=== PATIENT | female | born 1940 | race Two or more races ===

== ENCOUNTER 2017-01-18 09:41 | Observation (INO) | payer MEDICARE, OTHER ==
[~2017-01-18] VITALS: Ht 162.6 cm; Wt 81.8 kg
[~2017-01-18 09:41] MED LIST: AMOX500T PO; ASCO500C PO; BISA-42 PO; CALC-30 PO; CYAN50008 PO; DILT240C2 PO; DOFE125C PO; DOFE500C PO; DOXY100T PO; FENT1PAT13 TP; FURO-68 PO; Hydrocodone/Acetaminophen PO; LEVO125T PO; METO100T2 PO; MULT-208 PO; PANT40TA3 PO; POTA20TA4 PO; SPIR25TA3 PO
[2017-01-18] MEDS ORDERED: 0.9 % SODIUM CHLORIDE 10 ML DISP.SYRIN. IV PRN (10:15)
[2017-01-18 10:24] LABS: FECAL OB PT POSITIVE (NEG)
[2017-01-18] MEDS ORDERED: IV NORMAL SALINE 500ML 500 ML IV ONE (10:30)
[2017-01-18 10:36] LABS: BASO % 0 % (0-3); EOS % 1 % (0-3); HEMATOCRIT 41.8 % (36.0-47.0); HEMOGLOBIN 13.8 g/dL (12.0-15.5); LYMPH # 1.6 x10^3/uL (1.0-4.8); LYMPH % 18 % (24-48); MEAN CORPUSCULAR HEMOGLOBIN 31 pg (25-35); MEAN CORPUSCULAR HGB CONC 33 g/dL (31-37); MEAN CORPUSCULAR VOLUME 94 fL (79-100); MONO # 0.6 x10^3/uL (0.0-1.1); MONO % 7 % (0-9); NEUT # 6.6 x10^3uL (1.8-7.7); NEUT % 74 % (31-73); PLATELET COUNT 239 x10^3/uL (140-400); RED BLOOD COUNT 4.43 x10^6/uL (3.50-5.40); RED CELL DISTRIBUTION WIDTH 14.1 % (11.5-14.5); WHITE BLOOD COUNT 8.9 x10^3/uL (4.0-11.0)
[2017-01-18 10:53] LABS: ALBUMIN 3.4 g/dL (3.4-5.0); ALBUMIN/GLOBULIN RATIO 1.2 (1.0-1.7); CALCIUM 8.9 mg/dL (8.5-10.1); CREATININE 0.7 mg/dL (0.6-1.0); GFR 80.9; POTASSIUM 4.3 mmol/L (3.5-5.1); TOTAL BILIRUBIN 0.8 mg/dL (0.2-1.0); TOTAL PROTEIN 6.3 g/dL (6.4-8.2)
--- NOTE | 2017-01-18 11:08 | PHYS DOC ---
General Chief Complaint: RECTAL BLEED Stated Complaint: RECTAL BLEED Time Seen by MD: 09:46 Source: patient Exam Limitations: no limitations Problems: History of Present Illness Initial Comments 76 years old female patient with history of atrial fibrillation on Coumadin states she had 2 episodes of rectal bleeding since 529 today. Patient states the first episode was dark blood and the second episode had stool mixed with bright red blood. Patient denies nausea and vomiting, abdominal pain, dizziness , shortness of breath, chest pain, ecchymoses and hematuria, history of GI bleeding. Patient states she did not take Coumadin last night because of plan of epidural injection. Allergies: Coded Allergies: iodine (Verified Allergy, Intermediate, 07/26/15) TOPICAL sulfamethoxazole (Unverified Allergy, Intermediate, 07/26/15) trimethoprim (Unverified Allergy, Intermediate, 07/26/15) aspirin (Unverified Allergy, Unknown, 07/26/15) cefuroxime (Verified Allergy, Unknown, 11/07/15) clonazepam (Unverified Allergy, Unknown, 07/26/15) hydrochlorothiazide (Unverified Allergy, Unknown, 07/26/15) iodine (Unverified Allergy, Unknown, 07/26/15) latex (Unverified Allergy, Unknown, 07/26/15) oxycodone (Unverified Allergy, Unknown, 07/26/15) pork derived (porcine) (Unverified Allergy, Unknown, 07/26/15) rabeprazole (Unverified Allergy, Unknown, 07/26/15) Past Medical History Medical History: hypertension, other (atrial fibrillation) Surgical History: other (cardiac valve fidgety, right mastectomy) Social History Smoker: non-smoker Alcohol: none Drugs: none Review of Systems Constitutional: no symptoms reported EENTM: no symptoms reported Respiratory: no symptoms reported Cardiovascular: no symptoms reported Gastrointestinal: see HPI Genitourinary: no symptoms reported Musculoskeletal: no symptoms reported Skin: no symptoms reported Psychiatric/Neurological: no symptoms reported Hematologic/Lymphatic: no symptoms reported Immunological/Allergic: no symptoms reported All Other Systems: Reviewed and Negative Physical Exam General Appearance: WD/WN, mild distress Eyes: bilateral eye EOMI, bilateral eye PERRL, bilateral eye normal inspection Ear, Nose, Throat: hearing grossly normal, normal ENT inspection, normal pharynx Neck: non-tender, full range of motion, supple Respiratory: chest non-tender, lungs clear, normal breath sounds, no respiratory distress Cardiovascular: normal peripheral pulses, regular rate, rhythm, no edema Gastrointestinal: normal bowel sounds, non tender, soft, no organomegaly, no pulsatile mass, other Rectal: heme positive stool (marroon colored stool) Back: normal inspection, no CVA tenderness, no vertebral tenderness Extremities: normal range of motion, non-tender, normal inspection, no pedal edema 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 Patient had unremarkable physical exam except for maroon color stool in the rectum. Patient had negative orthostatic vital sign. Hemoglobin was 13.6 and INR was 3.2. Patient treated with IV fluid and Protonix and Coumadin was hold. She did not have rectal bleeding while she in ER. Dr. Bal accepted the admission at 1105. Departure Departure: Impression: Primary Impression: GI bleeding Additional Impression: Hemorrhage secondary to anti-coagulation Disposition: 09 ADMITTED INPATIENT (at 1107) Admitting Physician: Margarito Bal Condition: IMPROVED JACKSON GALLAGHER MD Jan 18, 2017 11:08
[2017-01-18] MEDS ORDERED: PANTOPRAZOLE IV PUSH 40 MG VIAL. IVP ONE (11:15)
[2017-01-18] MEDS ORDERED: ONDANSETRON PF 4 MG/2 ML VIAL. IV PRN (12:00)
[2017-01-18] MEDS ORDERED: PANTOPRAZOLE SODIUM IV 80 MG in IV NORMAL SALINE 100ML 100 ML IV ONE (12:00)
[2017-01-18 12:09] LABS: HEMATOCRIT 39.4 % (36.0-47.0); RED BLOOD COUNT 4.16 x10^6/uL (3.50-5.40); RED CELL DISTRIBUTION WIDTH 14.3 % (11.5-14.5); WHITE BLOOD COUNT 8.7 x10^3/uL (4.0-11.0)
[2017-01-18 13:29] VITALS: BP 110/74
[2017-01-18 13:31] VITALS: BP 110/74
--- NOTE | 2017-01-18 14:18 | ACF ---
Admission Criteria Forms GASTROINTESTINAL BLEEDING Clinical Indications for Inpatient Care (Place 'X' for any and all applicable criteria): Ongoing inpatient care may be indicated for gastrointestinal bleeding with ANY ONE of the following (4)(20)(21)(22)(23)(24): [X]I. Active bleeding (eg, fresh voluminous blood in emesis or nasogastric aspirate, or per rectum) [ ]II. Hemodynamic instability [ ]III. Anticoagulation therapy or coagulopathy ((eg, advanced liver disease, irreversible anticoagulation) [ ]IV. Ischemic colitis (22) [ ]V. Endoscopy showing arterial bleeding, adherent clot, nonbleeding visible vessel, varices, flat red spots, ulcer size greater than 2 cm, or portal hypertensive gastropathy [ ]. High-risk low platelet count [ ]VII. Anemia requiring inpatient care as indicated by ANY ONE of the following a)[ ] Cognitive impairment b)[ ] Syncope c)[ ] Heart failure d)[ ] Chest pain e)[ ] Dyspnea f)[ ] Other findings suggesting inadequate perfusion (eg, peripheral or myocardial ischemia, end organ dysfunction) [ ]VIII. High-risk low platelet count [ ]IX. Suspected variceal cause of bleeding as indicated by ANY ONE of the following(27)(28): a)[ ] Known varices b)[ ] Hepatomegaly or splenomegaly c)[ ] Ascites d)[ ] Jaundice or scleral icterus e)[ ] History of liver disease (eg, cirrhosis) f)[ ] Physical findings of portal hypertension (eg, caput medusa) g)[ ] Comorbid disorder indicating risk for portal vein thrombosis (eg , abdominal surgery, sepsis, shock, exchange transfusion, prior umbilical vein catheterization) Extended stay may be needed until ALL of the following are present(20)(38)(47): [ ]a) Hemodynamic stability [ ]b) No evidence of active bleeding (eg, stable Hematocrit) [ ]c) Platelet count, prothrombin time, and partial thromboplastin time acceptable for next level of care [ ]d) Surgical or other acute intervention not needed [ ]e) Oral hydration and diet tolerated The original [facility] content created by Dang Levine has been revised. The portions of the content which have been revised are identified through the use of italic text or in bold, and Dang Levine has neither reviewed nor approved the modified material. All other unmodified content is copyright [facility]. Please see references footnoted in the original [facility] edition 2016 Admission Criteria Met?: Yes HEATHER BALBUENA Jan 18, 2017 14:18
[2017-01-18] MEDS ORDERED: WARF2TAB7 PO (14:40)
[2017-01-18] MEDS ORDERED: NITR0.4T SL (14:40)
[2017-01-18] MEDS ORDERED: LACT1CAP29 PO (14:41)
[2017-01-18] MEDS ORDERED: LACT1.5C PO (14:44)
[2017-01-18] MEDS ORDERED: NITROGLYCERIN SUBLINGUAL 0.4 MG BOTTLE OF 25. SL PRN (14:45)
[2017-01-18 14:46] LABS: BILIRUBIN,URINE NEG (NEG); CLARITY,URINE HAZY; COLOR,URINE YELLOW; GLUCOSE,URINE NEG (NEG); NITRITE,URINE NEG (NEG); UROBILINOGEN,URINE 0.2 mg/dL (0.2 mg/dL)
[2017-01-18 14:47] LABS: BACTERIA,URINE 0 /HPF (0-FEW); SQUAMOUS EPITHELIAL CELL,UR FEW /LPF
[2017-01-18] MEDS: HYDROCODONE/APAP 5/325MG TABLET. PO PRN (15:29)
[2017-01-18 16:43] VITALS: BP 94/60
[2017-01-18 19:24] VITALS: BP 90/65
[2017-01-18] MEDS: DOFETILIDE 250 MCG CAPSULE PO SCH (20:31)
[2017-01-18] MEDS: PANTOPRAZOLE SODIUM IV 80 MG in IV NORMAL SALINE 100ML 100 ML IV SCH (20:32)
[2017-01-18] MEDS: METOPROLOL TART IMMED RELEASE 50 MG TABLET PO SCH (20:33)
[2017-01-18] MEDS ORDERED: LACTOBACILLUS ACIDOPH & BULGAR 1 TABLET. PO SCH (21:00)
[2017-01-18 23:06] VITALS: BP 88/57
[2017-01-18 23:35] VITALS: BP 93/55
[2017-01-19 05:05] VITALS: BP 88/59
[2017-01-19] MEDS: PANTOPRAZOLE SODIUM IV 80 MG in IV NORMAL SALINE 100ML 100 ML IV SCH (05:09)
[2017-01-19 07:18] LABS: BASO % 0 % (0-3); EOS % 1 % (0-3); HEMATOCRIT 40.1 % (36.0-47.0); HEMOGLOBIN 13.2 g/dL (12.0-15.5); LYMPH # 1.9 x10^3/uL (1.0-4.8); LYMPH % 31 % (24-48); MEAN CORPUSCULAR HEMOGLOBIN 31 pg (25-35); MEAN CORPUSCULAR HGB CONC 33 g/dL (31-37); MEAN CORPUSCULAR VOLUME 95 fL (79-100); MONO # 0.5 x10^3/uL (0.0-1.1); MONO % 8 % (0-9); NEUT # 3.7 x10^3uL (1.8-7.7); NEUT % 59 % (31-73); PLATELET COUNT 215 x10^3/uL (140-400); RED BLOOD COUNT 4.24 x10^6/uL (3.50-5.40); RED CELL DISTRIBUTION WIDTH 14.3 % (11.5-14.5); WHITE BLOOD COUNT 6.2 x10^3/uL (4.0-11.0)
[2017-01-19 07:26] LABS: ALBUMIN 3.1 g/dL (3.4-5.0); ALBUMIN/GLOBULIN RATIO 1.1 (1.0-1.7); CALCIUM 8.7 mg/dL (8.5-10.1); CREATININE 0.8 mg/dL (0.6-1.0); GFR 69.4; POTASSIUM 4.3 mmol/L (3.5-5.1); TOTAL BILIRUBIN 1.2 mg/dL (0.2-1.0); TOTAL PROTEIN 5.9 g/dL (6.4-8.2)
[2017-01-19] MEDS ORDERED: LEVOTHYROXINE 125 MCG TABLET PO SCH (07:30)
[2017-01-19 08:31] VITALS: BP 104/69
[2017-01-19] MEDS: DOFETILIDE 250 MCG CAPSULE PO SCH (08:43)
[2017-01-19] MEDS ORDERED: PANTOPRAZOLE 40 MG TABLET. PO SCH (09:00)
[2017-01-19] MEDS ORDERED: DILTIAZEM HCL 240 MG CAP.ER.24H PO SCH (09:00)
[2017-01-19] MEDS ORDERED: POTASSIUM CHLORIDE 20 MEQ TABLET.ER. PO SCH (09:00)
[2017-01-19] MEDS: METOPROLOL TART IMMED RELEASE 50 MG TABLET PO SCH (09:00)
[2017-01-19] MEDS ORDERED: SPIRONOLACTONE 25 MG TABLET PO SCH (09:00)
[2017-01-19] MEDS ORDERED: MULTIVITAMIN with MINERAL TABLET. PO SCH (09:00)
[2017-01-19] MEDS ORDERED: FUROSEMIDE 40 MG TABLET PO SCH (09:00)
[2017-01-19] MEDS ORDERED: ASCORBIC ACID 500 MG TABLET PO SCH (09:00)
[2017-01-19 11:07] VITALS: BP 108/70
[2017-01-19] MEDS: HYDROCODONE/APAP 5/325MG TABLET. PO PRN (11:17)
[2017-01-19 12:23] LABS: HEMATOCRIT 41.5 % (36.0-47.0); HEMOGLOBIN 13.6 g/dL (12.0-15.5); RED BLOOD COUNT 4.36 x10^6/uL (3.50-5.40); RED CELL DISTRIBUTION WIDTH 14.2 % (11.5-14.5); WHITE BLOOD COUNT 7.7 x10^3/uL (4.0-11.0)
--- NOTE | 2017-01-27 16:09 | HP ---
ADMIT DATE: 01/18/2017 HISTORY OF PRESENT ILLNESS: The patient is a 76-year-old female, who came in through the Emergency Room with history of chronic atrial fibrillation on chronic Coumadin therapy. The patient was noted rectal bleeding on the day of admission, dark red, bright red blood coming from her rectal area. This patient denies any nausea, vomiting, abdominal pain, shortness of breath, chest pain except for the melena as noted above. The patient does have a history of GI bleed in the past. She was going to get an epidural injection and had stopped her Coumadin last night, but continued to bleed. ALLERGIES: To SULFA, TRIMETHOPRIM, ASPIRIN, ROCEPHIN, CLONAZEPAM, HYDROCHLOROTHIAZIDE, LATEX, OXYCODONE, ____ RABEPRAZOLE, ____ TOPICAL IODINE. PAST MEDICAL HISTORY: Hypertension, chronic atrial fibrillation, cardiac valve ____ sick sinus syndrome with PAF, Medtronic dual chamber PPM in 2008, ASD repair, breast cancer, right mastectomy, venous insufficiency, sleep apnea, GERD, hypothyroidism, marked ectasia of the coronary arteries by catheterization, ejection fraction of 65% in 2014 with moderate MR, moderate TR, moderate LVH. SURGICAL HISTORY: Left TKA, cataract surgery, right TKA, cataract surgery, catheterization, mild coronary artery disease, Medtronic [place] [id number] dual chamber PPM on 09/29/2000, appendectomy, vasectomy as noted, hysterectomy with bilateral salpingo-oophorectomy. FAMILY HISTORY: Father in an airplane crash, mother at 75 with cardiac arrest, one brother alive, one sister with diagnosis of cancer. SOCIAL HISTORY: The patient denies smoking, alcohol or drug use. 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 Allergies as noted above. REVIEW OF SYSTEMS: The patient as noted above. Denies any headaches, visual change, blurred vision, or double vision. Denies any chest pain or shortness of breath. Denies any abdominal pain. Does have melena and hematochezia. MEDICATIONS: Include Tikosyn 250 mcg tablets 2 tablets twice daily, diltiazem 240 daily, Synthroid 112 mcg daily, B12. The patient also had Lidoderm patches, Temovate cream. PHYSICAL EXAMINATION: GENERAL: This is a pleasant white female, in moderate amount of pain. VITAL SIGNS: Blood pressure 90/55, respiratory rate 18, pulse 70, afebrile. HEENT: The patient's head was atraumatic, normocephalic. Eyes: PERRLA without jaundice. Mouth and throat were normal. NECK: Supple without JVD or thyromegaly. LUNGS: Diminished, but clear. CARDIOVASCULAR: ____ rhythm. ABDOMEN: Soft, nontender, protuberant, nontender, but no rebound or guarding, positive bowel sounds, no hepatosplenomegaly. No bruits noted. NEUROLOGIC: The patient was alert and oriented x 3. Stool hemoccult positive. HEMATOLOGIC: Positive. LABORATORY DATA: The patient's hemoglobin 13.8, hematocrit 41. Coags, 3.2 INR. Chemistries normal for sodium and potassium, BUN and creatinine 13 and 0.7. PLAN: The patient will be admitted for further evaluation of rule out GI bleeding and make further evaluation on her as indicated. JONNY WELCH MD DR: TJ/david JOB#: [id number] / [id number]
== END 2017-01-19 14:00 | disposition home or self-care (01) ==
LOC: ER 09:41 → 1 SOUTH 13:05
PROVIDERS: ADMIT Family Medicine; ATTEND Family Medicine
DX: K62.5 Hemorrhage of anus and rectum (principal); I10 Essential (primary) hypertension; I48.2 Chronic atrial fibrillation; I87.2 Venous insufficiency (chronic) (peripheral); G47.30 Sleep apnea, unspecified; K21.9 Gastro-esophageal reflux disease without esophagitis; E03.9 Hypothyroidism, unspecified; I25.10 Atherosclerotic heart disease of native coronary artery without angina pectoris; Z95.0 Presence of cardiac pacemaker; Z85.3 Personal history of malignant neoplasm of breast; Z79.01 Long term (current) use of anticoagulants; Z96.653 Presence of artificial knee joint, bilateral; Z82.41 Family history of sudden cardiac death
CPT/HCPCS: 36415; 80053; 81001; 82274; 83880; 84484; 85027; 85610; 85730; 86850; 86900; 86901; 87086; 96361; 96365; 96366; 96375; 99285; C9113; G0378; J7040; G0379

== ENCOUNTER → 2017-01-26 | Outpatient (CLI) | payer MEDICARE, OTHER ==
[2017-01-19 11:07] VITALS: BP 108/70
[~2017-01-26] MED LIST changes: +LACT1.5C PO; +LACT1CAP29 PO; +NITR0.4T SL; +WARF2TAB7 PO
--- NOTE | 2017-01-26 14:13 | RAD ---
Abdominal ultrasound, 01/26/2017: History: Abdominal pain The gallbladder contains multiple foci of increased echogenicity with associated posterior acoustic shadowing. The appearance is that of cholelithiasis. No gallbladder wall thickening is evident. The common hepatic duct is of normal caliber. There is no evidence of a hepatic mass. The visualized portions of the pancreas and spleen are unremarkable. Several small cysts are noted in the right kidney. The largest of these measures 1.4 cm. There is a 2.6 cm cyst in the left kidney. The kidneys show no evidence of obstruction. The aorta is of normal caliber. The inferior vena cava shows no abnormality. No free fluid is evident in the abdomen. IMPRESSION: 1. Cholelithiasis. 2. Small bilateral renal cysts.
== END | disposition home or self-care (01) ==
LOC: US 08:42
PROVIDERS: ATTEND Family Medicine
DX: R10.9 Unspecified abdominal pain (principal); K80.20 Calculus of gallbladder without cholecystitis without obstruction; N28.1 Cyst of kidney, acquired; Z87.442 Personal history of urinary calculi
CPT/HCPCS: 76700

== ENCOUNTER → 2017-06-08 | Outpatient (CLI) | payer MEDICARE, OTHER ==
[~2017-06-08] MED LIST changes: +FENT-73 TP; -FENT1PAT13 TP
--- NOTE | 2017-06-08 15:13 | RAD ---
Ventilation/perfusion lung scan, 06/08/2017: History: Cough and shortness of breath, elevated d-dimer The ventilation study was performed utilizing 9.5 mCi of xenon-133. Activity in the lungs is mildly heterogeneous. There is mild patchy retention in the lower chest on the washout phase. Perfusion imaging was performed utilizing 5.5 mCi of technetium 99m MAA. A similar pattern of activity is present in the lungs. No segmental or significant unmatched perfusion defects are seen. Similar findings were present on the previous study of 05/11/2008. IMPRESSION: There are no VQ findings to suggest pulmonary emboli.
== END | disposition home or self-care (01) ==
LOC: NM 12:23
PROVIDERS: ATTEND Family Medicine
DX: R68.89 Other general symptoms and signs (principal); R05 Cough; R06.02 Shortness of breath; Z95.0 Presence of cardiac pacemaker; Z79.01 Long term (current) use of anticoagulants
CPT/HCPCS: 78582; 96374; A9540; A9558

== ENCOUNTER → 2017-06-21 | Outpatient (CLI) | payer MEDICARE, OTHER ==
--- NOTE | 2017-06-21 16:29 | RAD ---
CT chest without contrast 06/21/2017 at 1610 hours Indication: Rib pain after fall Comparison: CT chest 11/07/2015 Technique: Multiple axial CT images of the chest were obtained without intravenous contrast. Coronal and sagittal reformats are provided. Findings: Left chest wall cardiac device is identified with leads terminating in the right atrium and right ventricle. Heart size is enlarged. No pericardial effusion. Thoracic aorta is normal in course and caliber with scattered atherosclerotic calcification. There are no enlarged lymph nodes in the axilla, mediastinum or hilar regions. There is a small left pleural effusion with adjacent compressive atelectasis. There is a 3 mm noncalcified pulmonary nodule in the left lower lobe (series 2, image 67). There is a 5 mm noncalcified pulmonary nodule in the right lower lobe (series 2, image 71). There is a 3 mm solid noncalcified pulmonary nodule in the anterior right middle lobe (series 2, image 51). There is no pneumothorax or pulmonary vascular congestion. There is a mildly displaced fracture involving the anterior left second, third, fourth, fifth, sixth ribs. Nondisplaced rib fractures are noted involving the anterolateral left seventh and eighth ribs. Healing right lateral fourth and fifth rib fractures are noted. Visualized portions of the upper abdomen are within normal limits. Impression: 1. There are minimally displaced left side rib fractures involving anterior left second, third, fourth, fifth and sixth ribs. Nondisplaced rib fractures are noted involving the anterolateral left seventh and eighth ribs. 2. Healing right lateral fourth and fifth rib fractures are noted. Recommend correlation with trauma history. 3. No pneumothorax. Small left pleural effusion with adjacent compressive atelectasis. 4. Several 5 mm solid noncalcified pulmonary nodules are noted, as detailed above. Recommend correlation with Fleischner 2017 guidelines for follow-up recommendations. PQRS Compliance Statement: One or more of the following individualized dose reduction techniques were utilized for this examination: 1. Automated exposure control 2. Adjustment of the mA and/or kV according to patient size 3. Use of iterative reconstruction technique
[2017-06-21 17:28] LABS: BASO % 0 % (0-3); EOS # 0.1 x10^3/uL (0.0-0.7); EOS % 1 % (0-3); HEMATOCRIT 38.5 % (36.0-47.0); HEMOGLOBIN 12.6 g/dL (12.0-15.5); LYMPH # 1.5 x10^3/uL (1.0-4.8); LYMPH % 20 % (24-48); MEAN CORPUSCULAR HEMOGLOBIN 29 pg (25-35); MEAN CORPUSCULAR HGB CONC 33 g/dL (31-37); MEAN CORPUSCULAR VOLUME 89 fL (79-100); MONO # 0.5 x10^3/uL (0.0-1.1); MONO % 7 % (0-9); NEUT # 5.1 x10^3uL (1.8-7.7); NEUT % 71 % (31-73); PLATELET COUNT 182 x10^3/uL (140-400); RED BLOOD COUNT 4.32 x10^6/uL (3.50-5.40); RED CELL DISTRIBUTION WIDTH 14.5 % (11.5-14.5); WHITE BLOOD COUNT 7.2 x10^3/uL (4.0-11.0)
[2017-06-21 17:33] LABS: CALCIUM 8.3 mg/dL (8.5-10.1); CREATININE 0.7 mg/dL (0.6-1.0); GFR 80.9
== END | disposition home or self-care (01) ==
LOC: LAB 15:50
PROVIDERS: ATTEND Family Medicine
DX: I50.23 Acute on chronic systolic (congestive) heart failure (principal); S22.42XA Multiple fractures of ribs, left side, initial encounter for closed fracture; I51.7 Cardiomegaly; I70.0 Atherosclerosis of aorta; R91.8 Other nonspecific abnormal finding of lung field; J90 Pleural effusion, not elsewhere classified; J98.11 Atelectasis; X58.XXXA Exposure to other specified factors, initial encounter; Y93.89 Activity, other specified; Y92.89 Other specified places as the place of occurrence of the external cause; Y99.8 Other external cause status
CPT/HCPCS: 36415; 71250; 80048; 82550; 83605; 83880; 84484; 85025

== ENCOUNTER 2019-11-11 10:45 | Inpatient (IN) | payer MEDICARE, OTHER ==
[~2019-11-11] VITALS: Ht 160 cm; Wt 81.6 kg
[~2019-11-11 10:45] MED LIST changes: -METO100T2 PO; +METO100T7 PO; -NITR0.4T SL; +NITR0.4T24 SL; -SPIR25TA3 PO; +SPIR25TA5 PO; -WARF2TAB7 PO; +WARF2TAB96 PO
[2019-11-11 12:20] VITALS: BP 104/69
[2019-11-11] MEDS ORDERED: APIX5TAB3 PO (12:49)
[2019-11-11] MEDS ORDERED: METO100T5 PO (12:49)
[2019-11-11] MEDS ORDERED: ESOM40CA PO (12:49)
[2019-11-11] MEDS ORDERED: ALBU2.5V14 NEB (12:49)
[2019-11-11] MEDS ORDERED: METO50TA4 PO (12:49)
[2019-11-11] MEDS ORDERED: CHOL200059 PO (12:49)
[2019-11-11] MEDS ORDERED: CALC500T54 PO (12:49)
[2019-11-11] MEDS ORDERED: ATOR10TA60 PO (12:49)
[2019-11-11] MEDS ORDERED: ASPI-612 PO (12:49)
[2019-11-11 13:01] LABS: BASO % 0 % (0-3); EOS % 0 % (0-3); HEMATOCRIT 39.3 % (36.0-47.0); HEMOGLOBIN 12.7 g/dL (12.0-15.5); LYMPH # 1.1 x10^3/uL (1.0-4.8); LYMPH % 10 % (24-48); MEAN CORPUSCULAR HEMOGLOBIN 29 pg (25-35); MEAN CORPUSCULAR HGB CONC 32 g/dL (31-37); MEAN CORPUSCULAR VOLUME 90 fL (79-100); MONO # 0.7 x10^3/uL (0.0-1.1); MONO % 6 % (0-9); NEUT # 8.9 x10^3uL (1.8-7.7); NEUT % 83 % (31-73); PLATELET COUNT 241 x10^3/uL (140-400); RED BLOOD COUNT 4.36 x10^6/uL (3.50-5.40); RED CELL DISTRIBUTION WIDTH 14.7 % (11.5-14.5); WHITE BLOOD COUNT 10.7 x10^3/uL (4.0-11.0)
[2019-11-11 13:23] LABS: ALBUMIN 3.4 g/dL (3.4-5.0); ALBUMIN/GLOBULIN RATIO 1.1 (1.0-1.7); CALCIUM 8.6 mg/dL (8.5-10.1); CREATININE 0.7 mg/dL (0.6-1.0); GFR 80.3; POTASSIUM 4.3 mmol/L (3.5-5.1); TOTAL BILIRUBIN 1.3 mg/dL (0.2-1.0); TOTAL PROTEIN 6.6 g/dL (6.4-8.2)
[2019-11-11] MEDS ORDERED: guaiFENesin DM 200MG/20MG 10 ML SYRUP PO PRN ×2 (13:45→18:00)
[2019-11-11] MEDS ORDERED: NITROGLYCERIN SUBLINGUAL 0.4 MG BOTTLE OF 25. SL PRN (13:45)
[2019-11-11] MEDS: traMADol 50 MG TABLET PO PRN ×2 (13:59→21:06)
[2019-11-11] MEDS: BENZONATATE 100 MG CAPSULE. PO SCH ×2 (13:59→21:10)
[2019-11-11] MEDS ORDERED: traMADol 50 MG TABLET PO PRN (14:00)
[2019-11-11 14:33] LABS: INFLUENZA A PATIENT NEGATIVE (NEGATIVE); INFLUENZA B PATIENT NEGATIVE (NEGATIVE)
[2019-11-11 14:46] VITALS: BP 108/72
[2019-11-11] MEDS ORDERED: FUROSEMIDE 40 MG TABLET PO SCH (16:00)
[2019-11-11] MEDS ORDERED: ALBUTEROL SULFATE 2.5 MG/3 ML NEBU. NEB SCH (16:00)
[2019-11-11] MEDS ORDERED: FUROSEMIDE 20 MG/2 ML VIAL IVP SCH (16:00)
[2019-11-11] MEDS ORDERED: IPRATROPIUM BROMIDE 0.5 MG/2.5 ML NEBU. NEB SCH (16:00)
[2019-11-11] MEDS: CALCIUM CARBONATE 500 MG TABLET PO SCH (16:18)
[2019-11-11] MEDS ORDERED: DOXYCYCLINE HYCLATE 100 MG TABLET PO SCH (18:00)
--- NOTE | 2019-11-11 18:15 | EKG ---
[address] [address] Test Date: 2019-11-11 Test Time: 15:45:37 Pat Name: SANDEEP ANGEL Department: Room: 109 A Gender: F Inspector Circuitry Negative: SARAH : 1940 Requested By: JONNY WELCH Order Number: [id number] Reading MD: Measurements Intervals Proctor Rate: 82 P: VT: QRS: 171 QRSD: 144 T: -8 QT: 420 QTc: 494 Interpretive Statements IRREGULAR RHYTHM, NO P-WAVE FOUND ABNORMAL RIGHT AXIS DEVIATION NON SPECIFIC INTRAVENTRICULAR BLOCK CONSIDER RIGHT VENTRICULAR HYPERTROPHY QRS(T) CONTOUR ABNORMALITY CONSIDER ANTEROSEPTAL MYOCARDIAL DAMAGE ABNORMAL ECG RI6.02 No previous ECG available for comparison
[2019-11-11 19:19] VITALS: BP 93/59
[2019-11-11] MEDS: IPRATRPIUM/ALBUTEROL 0.5/2.5MG 3 ML NEBU. NEB SCH (20:00)
--- NOTE | 2019-11-11 20:54 | RAD ---
EXAM: CHEST ONE VIEW. HISTORY: Cough and shortness of breath. COMPARISON: 06/21/2017. FINDINGS: A frontal view of the chest is obtained. A left-sided pacemaker/defibrillator has its leads in the right atrium, right ventricle and a left cardiac vein. A surgical clip projects over the right upper lobe. The central vasculature are enlarged. Linear opacities in the bases may indicate atelectasis or mild pulmonary edema. There is no pneumothorax or clear pleural effusion. The heart is moderately enlarged. There are atherosclerotic calcifications of the aorta. Right rotator cuff arthropathy and moderate glenohumeral osteoarthritis are noted. IMPRESSION: 1. Findings consistent with mild volume overload. Moderate cardiomegaly. Correlate for pulmonary arterial hypertension. Electronically signed by: Nicci Musa MD (11/11/2019 8:50 PM) [facility]
--- NOTE | 2019-11-11 20:56 | RAD ---
EXAM: VENTILATION/PERFUSION SCINTIGRAPHY. HISTORY: Positive d-dimer. Shortness of breath, cough. Assess for pulmonary embolism. TECHNIQUE: 15 mCi Xe-133 was inhaled and ventilation images were obtained. 5.1 mCi Tc-99m MAA was injected intravenously and perfusion images were obtained in multiple projections. COMPARISON: Today's plain radiograph. FINDINGS: Decreased ventilation in the left base is likely secondary to cardiomegaly. There is mild radiotracer retention focally in the right base. Decreased perfusion signal in the left base is again likely secondary to compression and decreased ventilation in the setting of cardiomegaly. There are no segmental defects. A pacemaker generator is noted. IMPRESSION: 1. Low probability for pulmonary embolism. 2. Focal air trapping in the right base. Electronically signed by: Nicci Musa MD (11/11/2019 8:53 PM) [facility]
[2019-11-11] MEDS: METOPROLOL SUCC 24HR ER 50 MG TAB.ER.24H. PO SCH (21:00)
[2019-11-11] MEDS ORDERED: NON FORMULARY ITEM (Albuterol Sulfate (Albuterol Sulfate Conc Neb Soln) 2.5 MG) NEB SCH (21:00)
[2019-11-11] MEDS: LACTOBACILLUS RHAMNOSUS GG 1 CAPSULE. PO SCH (21:04)
[2019-11-11] MEDS: APIXABAN 5 MG TABLET. PO SCH (21:04)
[2019-11-11] MEDS: methylPREDNISolone SOD SUCC PF 40 MG/ML VIAL. IV SCH (21:04)
[2019-11-11] MEDS: diphenhydrAMINE HCL 25 MG CAPSULE PO PRN (21:06)
[2019-11-11] MEDS: DOXYCYCLINE HYCLATE 100 MG TABLET PO SCH (21:07)
[2019-11-11] MEDS: ATORVASTATIN CALCIUM 10 MG TABLET. PO SCH (21:07)
[2019-11-11] MEDS: BISACODYL TAB 5 MG TABLET.DR. PO SCH (21:07)
[2019-11-11 22:36] VITALS: BP 100/63
[2019-11-12] MEDS: IPRATRPIUM/ALBUTEROL 0.5/2.5MG 3 ML NEBU. NEB SCH ×2 (04:54→21:18)
[2019-11-12 05:16] VITALS: BP 102/67
[2019-11-12] MEDS: LEVOTHYROXINE 125 MCG TABLET PO SCH (05:47)
--- NOTE | 2019-11-12 06:30 | RAD ---
CT chest without contrast PQRS statement: CT scans at this facility use dose reduction including either automated exposure control, iterative reconstructions, and /or weight based radiation dosing via mA and kV modification when appropriate to reduce radiation dose to as low as reasonably achievable. HISTORY: Shortness of breath and coughing. COMPARISON: CT chest June 21, 2017. FINDINGS: Gallstones. Sliding hiatal hernia gastroesophageal junction. Cardiomegaly. Cardiac pacemaker. 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 Enlargement of the pulmonary arteries main pulmonary artery diameter is 4.2 cm may indicate pulmonary hypertension. Probable mediastinal adenopathy with a subcarinal enlarged 2 cm lymph node on image 27 previously was smaller measuring 1.5 cm. Mild enlarged right paratracheal mediastinal 1.5 cm lymph node is similar. Right mastectomy. Tiny dependent subcentimeter pleural effusions. Mild subpleural reticulation and mild groundglass opacities at the right middle lobe and bilateral lower lobes may represent very mild edema. No consolidated pulmonary opacities. No pulmonary interstitial edema evident. Trachea and bronchi are unremarkable. IMPRESSION: 1. Cardiomegaly is stable. 2. Tiny subcentimeter dependent pleural effusions. There may be very mild edema at the lung bases. 3. Mediastinal adenopathy. Electronically signed by: Kaushik Foster MD (11/12/2019 6:27 AM) [facility]
[2019-11-12] MEDS: BENZONATATE 100 MG CAPSULE. PO SCH ×3 (07:52→20:49)
[2019-11-12] MEDS: CALCIUM CARBONATE 500 MG TABLET PO SCH ×2 (07:53→18:02)
[2019-11-12] MEDS: APIXABAN 5 MG TABLET. PO SCH ×2 (07:53→20:49)
[2019-11-12] MEDS: PANTOPRAZOLE 40 MG TABLET. PO SCH (07:53)
[2019-11-12] MEDS: POTASSIUM CHLORIDE 20 MEQ TABLET.ER. PO SCH (07:53)
[2019-11-12] MEDS: CHOLECALCIFEROL (VITAMIN D3) 1,000 UNIT TABLET PO SCH (07:54)
[2019-11-12] MEDS: MULTIVITAMIN with MINERAL TABLET. PO SCH (07:54)
[2019-11-12] MEDS: LACTOBACILLUS RHAMNOSUS GG 1 CAPSULE. PO SCH ×2 (07:54→20:49)
[2019-11-12] MEDS: DOXYCYCLINE HYCLATE 100 MG TABLET PO SCH ×2 (07:54→20:49)
[2019-11-12] MEDS: ASCORBIC ACID 500 MG TABLET PO SCH (07:54)
[2019-11-12] MEDS ORDERED: DILT120C99 PO (07:57)
[2019-11-12] MEDS: methylPREDNISolone SOD SUCC PF 40 MG/ML VIAL. IV SCH ×2 (08:04→20:50)
[2019-11-12 08:30] LABS: CALCIUM 8.9 mg/dL (8.5-10.1); CREATININE 0.6 mg/dL (0.6-1.0); GFR 95.9
[2019-11-12] MEDS ORDERED: FUROSEMIDE 20 MG/2 ML VIAL IVP SCH (09:00)
[2019-11-12] MEDS ORDERED: FUROSEMIDE 40 MG/4 ML VIAL IVP SCH (09:00)
[2019-11-12] MEDS ORDERED: ASPIRIN ENTERIC COATED 81 MG TABLET.DR. PO SCH (09:00)
[2019-11-12] MEDS ORDERED: MAG HYDROX/AL HYDROX/SIMETH 30 ML ORAL.SUSP PO PRN (09:15)
[2019-11-12] MEDS ORDERED: FUROSEMIDE 20 MG/2 ML VIAL IVP ONE (09:45)
[2019-11-12 11:03] VITALS: BP 109/70
--- NOTE | 2019-11-12 11:31 | RAD ---
CHEST PA LATERAL History: Shortness of air Comparison: Chest CT November 12, 2019 and November 11, 2019 radiograph Findings: 2 views of the chest are submitted. There is no new dependent pleural fluid identified by radiograph. There is no pneumothorax or new lobar consolidation. Pericardial cardiac silhouette is again enlarged. There is again tortuous thoracic aorta, some atherosclerotic calcification near aortic arch. There is again left electronic cardiac device. There is again prominence of the central pulmonary vessels. Impression: 1. Radiographic findings are similar, no new lobar infiltrate. Electronically signed by: Issa Mosquera MD (11/12/2019 11:28 AM) [facility]
[2019-11-12] MEDS: METOPROLOL SUCC 24HR ER 50 MG TAB.ER.24H. PO SCH ×2 (12:10→20:53)
[2019-11-12] MEDS: AZTREONAM 1 GM in IV NORMAL SALINE 50ML 50 ML IV SCH ×3 (12:11→23:58)
[2019-11-12] MEDS: FUROSEMIDE 40 MG/4 ML VIAL IVP SCH (13:59)
[2019-11-12 15:11] VITALS: BP 105/66
[2019-11-12] MEDS: traMADol 50 MG TABLET PO PRN (18:02)
[2019-11-12 19:31] VITALS: BP 108/71
--- NOTE | 2019-11-12 19:57 | HP ---
ADMIT DATE: 11/11/2019 HISTORY OF PRESENT ILLNESS: This is an 79-year-old female who came in. She has been having problems with coughing spasm as well as difficulty breathing because of the spasms have been so severe that she is not able to breathe. She has severe coughing spasms that have been going on for a few weeks. She has been attempted to be treated as an outpatient, but she cannot catch her breath because of the breathing difficulties and severe coughing spasms. She was admitted for further evaluation of the bronchospasms, which is a form of asthma. PAST MEDICAL HISTORY: Cataract surgery, tonsillectomy. She has had a history of stroke in February 2017, atrial fibrillation with atrial septal defect repaired, history of congestive heart failure, pacemaker placement, internal defibrillator, chronic anticoagulation therapy, hypotension, respiratory disorders, COPD, asthma, pneumonia, sleep apnea, diverticulitis, hiatal hernia, heartburn, GERD, breast cancer, right mastectomy, right lymph nodes removed, tubal ligation, hysterectomy, partial x 3, back and groin chronic lumbar and arthritic problems, osteoporosis, joint replacement bilateral knees, back pain, hypothyroidism, parathyroid disease, thyroidectomy, parathyroidectomy, caffeine use, blood disorders of anemia and history of cancer, clotting problems, blood transfusions. IMMUNIZATIONS: Influenza, pneumococcal up to date. ALLERGIES: She has multiple allergies to IODINE, SULFUR, ASPIRIN, CEFTIN, KLONOPIN, HYDROCHLOROTHIAZIDE, IODINE, LATEX, PERCOCET, PORCINE DERIVED OR PORK DERIVED MATERIALS AND ACIPHEX. HOME MEDICATIONS: Include albuterol sulfate, Eliquis 5 mg, Lipitor 10, Nitrostat, metoprolol XL 150 mg at bedtime, diltiazem 120 mg b.i.d., aspirin, calcium carbonate, potassium chloride, furosemide, lactobacillus, Dulcolax suppository. She uses Nexium capsule, Synthroid 125 mg, vitamin C, vitamin D and multivitamins. FAMILY HISTORY: Noncontributory or unknown. SOCIAL HISTORY: She denies smoking, alcohol or drug use. Lives at home. REVIEW OF SYSTEMS: Outside of severe coughing, she has had fever and chills, reported night sweats and has noted difficulty breathing as well as some lightheadedness and elements of hypotension. The patient denies any problem with her bowels or bladder, some mild nausea and otherwise unremarkable. Neurologically alert and oriented. The patient otherwise seems to be holding her own there. PHYSICAL EXAMINATION: GENERAL: This is a very pleasant white female, well-developed, well nourished. VITAL SIGNS: Blood pressure anywhere from 93/59 up to 105/66, respiratory rate up to 24, temperature 99.1, respiratory rate 24, oxygen saturation on oxygen of 95%. The patient's weight was 80 kilos. HEENT: The patient's head was atraumatic, normocephalic. Eyes: PERRLA without jaundice. The mouth and throat were normal. NECK: Supple, without JVD, carotid bruits. No thyromegaly. LUNGS: Diminished throughout. Some crackles noted in the right lower lung base. CARDIOVASCULAR: Irregular, irregular rhythm. ABDOMEN: The patient's abdomen was protuberant, soft, nontender, no rebounding, no guarding. Positive bowel sounds. EXTREMITIES: No clubbing, cyanosis, nor edema. NEUROLOGIC: The patient is alert and oriented x 3. LABORATORY DATA: The patient's labs show white count of 10. She does have decreased lymphocytes consistent with possible infection. The patient's sodium and potassium 130 and 9.4, BUN and creatinine of 30 and 0.6. Blood sugar 154. Lactic acid good. Calcium was also normal. Her D-dimer was elevated at 0.74. The patient otherwise is resting fairly comfortably and making good progress there. She had a CT of her chest, which demonstrated a cardiomegaly and subsegmental dependent pleural effusions with edema. She did have an elevated BNP of 1364, total bili slightly elevated at 1.3. Neurologically, alert and oriented. Speech is fluent, spontaneous and appropriate. The patient otherwise will be continued to be monitored carefully, make further evaluation on her as indicated. IMPRESSION: Acute on top of chronic diastolic heart failure as well as that of bronchospasm and multiple other history. The patient will be diuresed gently and make further evaluation on her breathing situation. JONNY WELCH MD DR: TJ/david JOB#: [id number] / [id number]
[2019-11-12] MEDS: BISACODYL TAB 5 MG TABLET.DR. PO SCH (20:49)
[2019-11-12] MEDS: ATORVASTATIN CALCIUM 10 MG TABLET. PO SCH (20:49)
[2019-11-12] MEDS: diphenhydrAMINE HCL 25 MG CAPSULE PO PRN (21:02)
[2019-11-12 22:56] VITALS: BP 98/64
[2019-11-13] MEDS: ZOLPIDEM 5 MG TABLET. PO PRN (00:18)
[2019-11-13] MEDS: AZTREONAM 1 GM in IV NORMAL SALINE 50ML 50 ML IV SCH ×4 (05:16→23:59)
[2019-11-13] MEDS: LEVOTHYROXINE 125 MCG TABLET PO SCH (05:17)
[2019-11-13 05:19] VITALS: BP 100/71
[2019-11-13 06:14] LABS: BASO % 0 % (0-3); EOS % 0 % (0-3); HEMATOCRIT 37.6 % (36.0-47.0); HEMOGLOBIN 12.3 g/dL (12.0-15.5); LYMPH # 0.7 x10^3/uL (1.0-4.8); LYMPH % 7 % (24-48); MEAN CORPUSCULAR HEMOGLOBIN 29 pg (25-35); MEAN CORPUSCULAR HGB CONC 33 g/dL (31-37); MEAN CORPUSCULAR VOLUME 89 fL (79-100); MONO # 0.2 x10^3/uL (0.0-1.1); MONO % 2 % (0-9); NEUT # 10.3 x10^3uL (1.8-7.7); NEUT % 92 % (31-73); PLATELET COUNT 251 x10^3/uL (140-400); RED BLOOD COUNT 4.21 x10^6/uL (3.50-5.40); RED CELL DISTRIBUTION WIDTH 13.9 % (11.5-14.5); WHITE BLOOD COUNT 11.3 x10^3/uL (4.0-11.0)
[2019-11-13 06:35] LABS: CALCIUM 8.7 mg/dL (8.5-10.1); CREATININE 0.7 mg/dL (0.6-1.0); GFR 80.3; POTASSIUM 3.8 mmol/L (3.5-5.1)
[2019-11-13] MEDS: BENZONATATE 100 MG CAPSULE. PO SCH ×3 (08:47→19:53)
[2019-11-13] MEDS: LACTOBACILLUS RHAMNOSUS GG 1 CAPSULE. PO SCH ×2 (08:47→19:54)
[2019-11-13] MEDS: APIXABAN 5 MG TABLET. PO SCH ×2 (08:48→19:54)
[2019-11-13] MEDS: CHOLECALCIFEROL (VITAMIN D3) 1,000 UNIT TABLET PO SCH (08:48)
[2019-11-13] MEDS: PANTOPRAZOLE 40 MG TABLET. PO SCH (08:48)
[2019-11-13] MEDS: DOXYCYCLINE HYCLATE 100 MG TABLET PO SCH (08:48)
[2019-11-13] MEDS: CALCIUM CARBONATE 500 MG TABLET PO SCH ×2 (08:48→17:12)
[2019-11-13] MEDS: MULTIVITAMIN with MINERAL TABLET. PO SCH (08:48)
[2019-11-13] MEDS: METOPROLOL SUCC 24HR ER 50 MG TAB.ER.24H. PO SCH ×2 (08:48→21:00)
[2019-11-13] MEDS: ASCORBIC ACID 500 MG TABLET PO SCH (08:48)
[2019-11-13] MEDS: POTASSIUM CHLORIDE 20 MEQ TABLET.ER. PO SCH (08:53)
[2019-11-13] MEDS: methylPREDNISolone SOD SUCC PF 40 MG/ML VIAL. IV SCH ×2 (08:53→19:53)
[2019-11-13] MEDS: FUROSEMIDE 40 MG/4 ML VIAL IVP SCH ×2 (08:53→14:43)
[2019-11-13] MEDS: IPRATRPIUM/ALBUTEROL 0.5/2.5MG 3 ML NEBU. NEB SCH ×3 (09:00→20:28)
[2019-11-13] MEDS ORDERED: CLARITHROMYCIN 250 MG TABLET PO SCH (09:00)
[2019-11-13] MEDS ORDERED: BISACODYL TAB 5 MG TABLET.DR. PO ONE (09:30)
[2019-11-13] MEDS ORDERED: AZITHROMYCIN 250 MG TABLET. PO ONE (09:45)
--- NOTE | 2019-11-13 09:50 | RAD ---
EXAM: Abdomen sonogram. HISTORY: Pain. TECHNIQUE: Sonographic imaging of the abdomen was performed. COMPARISON: 01/26/2017. FINDINGS: The liver is normal in size. No focal hepatic lesion is seen. The common bile duct is normal in caliber. There is cholelithiasis. There is no evidence of cholecystitis. The kidneys are normal in size. There are bilateral renal cysts, measuring 1.3 cm and 1.5 cm on the right and 3.2 cm on the left. No solid renal lesion is seen. The pancreas, spleen, aorta and inferior vena cava are unremarkable. IMPRESSION: 1. Cholelithiasis. 2. Bilateral renal cysts. These are simple in appearance. Electronically signed by: Ramona Camara MD (11/13/2019 9:47 AM) [facility]
[2019-11-13] MEDS: FAMOTIDINE 20 MG TABLET PO SCH ×2 (10:14→19:53)
[2019-11-13] MEDS: FLUTICASONE 50MCG/NASAL SPRAY 16GM BOTTLE. NS SCH (10:15)
[2019-11-13 11:38] VITALS: BP 122/78
[2019-11-13 15:25] VITALS: BP 97/61
[2019-11-13 19:44] VITALS: BP 102/64
[2019-11-13] MEDS: BISACODYL TAB 5 MG TABLET.DR. PO SCH (19:54)
[2019-11-13] MEDS: traMADol 50 MG TABLET PO PRN (19:54)
[2019-11-13] MEDS: ATORVASTATIN CALCIUM 10 MG TABLET. PO SCH (19:55)
[2019-11-13] MEDS: diphenhydrAMINE HCL 25 MG CAPSULE PO PRN (19:55)
--- NOTE | 2019-11-14 01:25 | PN ---
DATE: SUBJECTIVE: The patient in with acute exacerbation of COPD with respiratory distress. The patient is feeling a little bit better today. OBJECTIVE: VITAL SIGNS: Blood pressure is on the low side, now 97/61, respiratory rate 20, pulse 93, afebrile, oxygen saturation has come up gradually. GENERAL: The patient is alert and oriented. LUNGS: Diminished, still receiving antibiotics as well as aggressive pulmonary toilet. The patient's lungs are diminished throughout. CARDIOVASCULAR: Irregularly irregular rhythm. ABDOMEN: Soft, nontender. EXTREMITIES: No clubbing, cyanosis, nor edema. LABORATORY DATA: Show white count of 11, otherwise unremarkable. Chemistries are basically unremarkable except for an elevated blood sugar. She continues to make good progress overall. She did have an ultrasound, did show cholelithiasis and bilateral renal cysts, otherwise unremarkable there. We will continue to monitor the patient accordingly and taper down on Solu-Medrol and hopefully ready for discharge. IMPRESSION: Acute respiratory distress, acute exacerbation of chronic obstructive pulmonary disease. PLAN: As above. JONNY WELCH MD DR: TJ/david JOB#: [id number] / [id number]
[2019-11-14] MEDS: IPRATRPIUM/ALBUTEROL 0.5/2.5MG 3 ML NEBU. NEB SCH ×3 (05:03→20:45)
[2019-11-14 05:50] VITALS: BP 107/67
[2019-11-14] MEDS: AZTREONAM 1 GM in IV NORMAL SALINE 50ML 50 ML IV SCH ×4 (06:02→23:34)
[2019-11-14] MEDS: LEVOTHYROXINE 125 MCG TABLET PO SCH (06:02)
[2019-11-14] MEDS: methylPREDNISolone SOD SUCC PF 40 MG/ML VIAL. IV SCH ×2 (08:27→20:44)
[2019-11-14] MEDS: FUROSEMIDE 40 MG/4 ML VIAL IVP SCH ×2 (08:27→13:03)
[2019-11-14] MEDS: METOPROLOL SUCC 24HR ER 50 MG TAB.ER.24H. PO SCH ×2 (08:28→20:45)
[2019-11-14] MEDS: CHOLECALCIFEROL (VITAMIN D3) 1,000 UNIT TABLET PO SCH (08:30)
[2019-11-14] MEDS: FAMOTIDINE 20 MG TABLET PO SCH ×2 (08:30→20:44)
[2019-11-14] MEDS: AZITHROMYCIN 250 MG TABLET. PO SCH (08:31)
[2019-11-14] MEDS: ASCORBIC ACID 500 MG TABLET PO SCH (08:31)
[2019-11-14] MEDS: BENZONATATE 100 MG CAPSULE. PO SCH ×3 (08:32→20:44)
[2019-11-14] MEDS: LACTOBACILLUS RHAMNOSUS GG 1 CAPSULE. PO SCH ×2 (08:32→20:44)
[2019-11-14] MEDS: POTASSIUM CHLORIDE 20 MEQ TABLET.ER. PO SCH (08:32)
[2019-11-14] MEDS: MULTIVITAMIN with MINERAL TABLET. PO SCH (08:32)
[2019-11-14] MEDS: CALCIUM CARBONATE 500 MG TABLET PO SCH ×2 (08:32→16:23)
[2019-11-14] MEDS: PANTOPRAZOLE 40 MG TABLET. PO SCH (08:32)
[2019-11-14] MEDS: APIXABAN 5 MG TABLET. PO SCH ×2 (08:33→20:45)
[2019-11-14] MEDS: FLUTICASONE 50MCG/NASAL SPRAY 16GM BOTTLE. NS SCH (08:33)
[2019-11-14] MEDS ORDERED: ASPIRIN ENTERIC COATED 81 MG TABLET.DR. PO SCH (09:00)
[2019-11-14 11:07] VITALS: BP 96/60
--- NOTE | 2019-11-14 12:18 | CARD ---
MR#: [id number] Date of Study: 11/14/2019 Ordering Physician: JONNY WELCH, Referring Physician: JONNY WELCH, Tech: Jennie Carmichael RDCS APPROVED REPORT EXAM: Two-dimensional and M-mode echocardiogram with Doppler and color Doppler. Other Information Quality : Good INDICATION Congestive Heart Failure Surgery/Intervention ICD/Pacemaker: 2D DIMENSIONS RVDd4.1 (2.9-3.5cm)Left Atrium(2D)5.1 (1.6-4.0cm) IVSd0.9 (0.7-1.1cm)Aortic Root(2D)2.8 (2.0-3.7cm) LVDd5.2 (3.9-5.9cm)LVOT Diameter2.0 (1.8-2.4cm) PWd1.1 (0.7-1.1cm)LVDs4.0 (2.5-4.0cm) FS (%) 27.0 %LVEF(%)55.0 (>50%) Aortic Valve AoV VTI20.0cmAO Peak GR.7.0mmHg AO Mean GR.4mmHgAVA (VTI)2.40cm2 Tricuspid Valve TR P. [id number]/sRAP [id number] TR Peak Gr.[id number] LEFT VENTRICLE The left ventricle is normal size. There is normal left ventricular wall thickness. The Ejection Frac tion is 55%. Apical motion consistent with pacemaker activation. RIGHT VENTRICLE The right ventricle is normal size. The right ventricular systolic function is normal. There is a pac emaker lead in the right ventricle. ATRIA The left atrium is moderately dilated. The right atrium is moderately dilated. A pacemaker is seen in the right atrium consistent with history. The interatrial septum is intact with no evidence for an a trial septal defect or patent foramen ovale as noted on 2-D or Doppler imaging. AORTIC VALVE The aortic valve is calcified but opens well. Doppler and Color Flow revealed no significant aortic r egurgitation. There is no significant aortic valvular stenosis. MITRAL VALVE The mitral valve is calcified but opens well. There is no evidence of mitral valve prolapse. There is no mitral valve stenosis. Doppler and Color-flow revealed mild mitral regurgitation. TRICUSPID VALVE The tricuspid valve is normal in structure and function. Doppler and Color Flow revealed mild tricusp id regurgitation. There is moderate pulmonary hypertension. The PA pressure was estimated at 48 mmHg. There is no tricuspid valve stenosis. PULMONIC VALVE The pulmonary valve is normal in structure and function. Doppler and Color Flow revealed trace to mil d pulmonic valvular regurgitation. There is no pulmonic valvular stenosis. GREAT VESSELS The aortic root is normal in size. The ascending aorta is moderately dilated at 3.8 cm. The IVC dilat ed and collapses <50% with inspiration. PERICARDIAL EFFUSION There is no evidence of significant pericardial effusion. Critical Notification Critical Value: No <Conclusion> Apical motion consistent with pacemaker activation. The Ejection Fraction is 55%. There is a pacemaker lead in the right atrium and right ventricle. The left atrium is moderately dilated. Mild mitral regurgitation. Mild tricuspid regurgitation. The PA pressure was estimated at 48 mmHg. There is no evidence of significant pericardial effusion. Signed by : Zacarias Hernandez, Electronically Approved : 11/14/2019 12:17:44
[2019-11-14 15:22] VITALS: BP 97/60
[2019-11-14 19:49] VITALS: BP 96/67
[2019-11-14 20:21] VITALS: BP 114/73
[2019-11-14] MEDS: BISACODYL TAB 5 MG TABLET.DR. PO SCH (20:45)
[2019-11-14] MEDS: ATORVASTATIN CALCIUM 10 MG TABLET. PO SCH (20:45)
[2019-11-14] MEDS: traMADol 50 MG TABLET PO PRN (20:46)
[2019-11-14 23:33] VITALS: BP 100/61
[2019-11-14] MEDS: ZOLPIDEM 5 MG TABLET. PO PRN (23:34)
--- NOTE | 2019-11-15 04:14 | PN ---
DATE: 11/14/2019 SUBJECTIVE: The patient with acute exacerbation of chronic obstructive pulmonary disease, has also mild congestive heart failure. The patient is known to have cholelithiasis. She is diuresing nicely. She is improving very nicely. Her blood pressure has dropped down to 97/60, respiratory rate ____, pulse 82. We decreased some of her blood pressure medication to help bring that back up into range. The patient otherwise seems to be making good progress overall. OBJECTIVE: VITAL SIGNS: Blood pressure 97/60, respiratory rate 24, pulse 82, afebrile, 2.5 liters at 94% to 97%. GENERAL: The patient is alert and oriented. LUNGS: Crackles in the bases, but markedly improved. CARDIOVASCULAR: Regular sinus rhythm. EXTREMITIES: No clubbing, cyanosis, nor edema. NEUROLOGIC: The patient is alert and oriented x 3. The patient continues to make good progress, but she might have some bronchitis on top of her heart failure and her sputum has come back with multiple different organisms in there. Electrolytes look basically stable and sodium, potassium, BUN and creatinine. IMPRESSION: Acute on top of chronic diastolic heart failure, acute bronchitis, acute exacerbation of chronic obstructive pulmonary disease with respiratory infection. JONNY WELCH MD DR: TJ/david JOB#: [id number] / [id number]
[2019-11-15] MEDS: IPRATRPIUM/ALBUTEROL 0.5/2.5MG 3 ML NEBU. NEB SCH ×2 (04:26→10:45)
[2019-11-15] MEDS: LEVOTHYROXINE 125 MCG TABLET PO SCH (06:11)
[2019-11-15] MEDS: AZTREONAM 1 GM in IV NORMAL SALINE 50ML 50 ML IV SCH ×2 (06:13→10:49)
[2019-11-15 06:25] VITALS: BP 117/76
[2019-11-15 06:25] LABS: CALCIUM 8.5 mg/dL (8.5-10.1); CREATININE 0.9 mg/dL (0.6-1.0); GFR 60.1
[2019-11-15] MEDS: MULTIVITAMIN with MINERAL TABLET. PO SCH (08:27)
[2019-11-15] MEDS: LACTOBACILLUS RHAMNOSUS GG 1 CAPSULE. PO SCH (08:27)
[2019-11-15] MEDS: POTASSIUM CHLORIDE 20 MEQ TABLET.ER. PO SCH (08:27)
[2019-11-15] MEDS: BENZONATATE 100 MG CAPSULE. PO SCH (08:27)
[2019-11-15] MEDS: PANTOPRAZOLE 40 MG TABLET. PO SCH (08:28)
[2019-11-15] MEDS: AZITHROMYCIN 250 MG TABLET. PO SCH (08:28)
[2019-11-15] MEDS: FAMOTIDINE 20 MG TABLET PO SCH (08:28)
[2019-11-15] MEDS: CHOLECALCIFEROL (VITAMIN D3) 1,000 UNIT TABLET PO SCH (08:28)
[2019-11-15] MEDS: CALCIUM CARBONATE 500 MG TABLET PO SCH (08:28)
[2019-11-15] MEDS: ASCORBIC ACID 500 MG TABLET PO SCH (08:28)
[2019-11-15] MEDS: APIXABAN 5 MG TABLET. PO SCH (08:28)
[2019-11-15] MEDS: methylPREDNISolone SOD SUCC PF 40 MG/ML VIAL. IV SCH (08:29)
[2019-11-15] MEDS: FLUTICASONE 50MCG/NASAL SPRAY 16GM BOTTLE. NS SCH (08:29)
[2019-11-15] MEDS ORDERED: METOPROLOL SUCC 24HR ER 50 MG TAB.ER.24H. PO SCH (09:00)
[2019-11-15 09:15] VITALS: BP_SYST 107; BP_SYST 115; BP_SYST 123; BP_DIAS 67; BP_DIAS 68; BP_DIAS 73
[2019-11-15] MEDS ORDERED: METO50TA4 PO (10:46)
[2019-11-15] MEDS ORDERED: GUAI600T47 PO (10:46)
[2019-11-15] MEDS ORDERED: DIPH25CA23 PO (10:46)
[2019-11-15] MEDS ORDERED: FLUT16SP21 NS (10:46)
[2019-11-15] MEDS ORDERED: FURO20TA3 PO (10:46)
[2019-11-15] MEDS ORDERED: PRED20TA PO (10:46)
[2019-11-15] MEDS ORDERED: IPRA3AMP29 NEB (10:46)
[2019-11-15] MEDS ORDERED: FAMO20TA5 PO (10:46)
[2019-11-15] MEDS ORDERED: TRAM50TA PO (10:46)
[2019-11-15] MEDS ORDERED: AZIT250T6 PO (10:46)
[2019-11-15] MEDS ORDERED: MAG30ORA2 PO (10:46)
[2019-11-15] MEDS ORDERED: ZOLP5TAB PO (10:46)
[2019-11-15] MEDS ORDERED: GUAI5SYR PO (10:46)
[2019-11-15] MEDS ORDERED: BENZ-8 PO (10:46)
[2019-11-15] MEDS ORDERED: FUROSEMIDE 40 MG/4 ML VIAL IVP SCH (14:00)
== END 2019-11-15 12:08 | disposition home or self-care (01) | DRG 291 ==
LOC: UNDOADMIN 10:45 → 1 SOUTH 10:45
PROVIDERS: ADMIT Family Medicine; ATTEND Family Medicine
DX: I50.33 Acute on chronic diastolic (congestive) heart failure (principal); J96.01 Acute respiratory failure with hypoxia; J44.0 Chronic obstructive pulmonary disease with (acute) lower respiratory infection; J44.1 Chronic obstructive pulmonary disease with (acute) exacerbation; J20.9 Acute bronchitis, unspecified; I48.91 Unspecified atrial fibrillation; Z96.653 Presence of artificial knee joint, bilateral; M81.0 Age-related osteoporosis without current pathological fracture; K80.20 Calculus of gallbladder without cholecystitis without obstruction; I27.20 Pulmonary hypertension, unspecified; E89.0 Postprocedural hypothyroidism; Z86.73 Personal history of transient ischemic attack (TIA), and cerebral infarction without residual deficits; Z95.0 Presence of cardiac pacemaker; Z79.01 Long term (current) use of anticoagulants; Z90.711 Acquired absence of uterus with remaining cervical stump; Z90.11 Acquired absence of right breast and nipple; Z87.74 Personal history of (corrected) congenital malformations of heart and circulatory system; Z85.3 Personal history of malignant neoplasm of breast; Z88.8 Allergy status to other drugs, medicaments and biological substances
CPT/HCPCS: 36415; 71045; 71046; 71250; 76700; 78582; 80048; 80053; 82550; 83605; 83690; 83880; 84145; 84443; 84484; 85025; 85379; 87040; 87070; 87205; 87449; 87804; 93005; 93306; 94618; 94640; 94760; 96374; A9540; A9558; J0456; J1940; J2920; J3490; J7620; Q0163

== ENCOUNTER 2020-06-20 11:47 | Inpatient (IN) | payer MEDICARE, OTHER ==
[~2020-06-20] VITALS: Ht 162.6 cm; Wt 84.3 kg
[~2020-06-20 11:47] MED LIST changes: +ALBU2.5V14 NEB; +APIX5TAB3 PO; +ASPI-889 PO; +ATOR10TA60 PO; +AZIT250T6 PO; +BENZ-8 PO; +CALC500T54 PO; +CHOL200059 PO; +DILT120C99 PO; +DIPH25CA23 PO; +ESOM40CA PO; +FAMO20TA5 PO; +FLUT16SP21 NS; +FURO20TA3 PO; +GUAI5SYR PO; +GUAI600T47 PO; +IPRA3AMP29 NEB; +MAG30ORA2 PO; +METO100T5 PO; +METO50TA4 PO; +PRED20TA PO; +TRAM50TA PO; +ZOLP5TAB PO
[2020-06-20] MEDS ORDERED: ACETAMINOPHEN 500 MG TABLET PO PRN (12:30)
[2020-06-20] MEDS ORDERED: VANCOMYCIN PER PHARMACY MC PRN (12:30)
[2020-06-20 12:50] VITALS: BP 107/71
[2020-06-20] MEDS ORDERED: SPIR25TA5 PO (12:52)
[2020-06-20] MEDS ORDERED: LEVO125T5 PO (12:52)
[2020-06-20] MEDS ORDERED: MONT10TA80 PO (12:52)
[2020-06-20] MEDS ORDERED: ZOLP5TAB5 PO (12:52)
[2020-06-20] MEDS ORDERED: FLUT1BLS3 IH (12:52)
[2020-06-20] MEDS ORDERED: ZOLPIDEM 5 MG TABLET. PO PRN (14:30)
[2020-06-20] MEDS ORDERED: NITROGLYCERIN SUBLINGUAL 0.4 MG BOTTLE OF 25. SL PRN (14:30)
[2020-06-20 14:54] VITALS: BP 113/72
[2020-06-20] MEDS ORDERED: VANCOMYCIN 2 GM in IV NORMAL SALINE 500ML 500 ML IV ONE (15:00)
--- NOTE | 2020-06-20 15:21 | RAD ---
Exam: CT right lower extremity without contrast INDICATION: Swelling and pain to the right knee TECHNIQUE: Sequential axial images through the right knee obtained without IV contrast. Sagittal and coronal reformatted images were reconstructed from the axial data and reviewed. Comparisons: None FINDINGS: Right knee arthroplasty changes are noted. There is a small suprapatellar effusion. There is subcutaneous soft tissue contusion overlying the right lateral knee. No acute fractures identified. There is mild diffuse osteopenia. IMPRESSION: 1. Soft tissue contusion overlying the right lateral knee with a small suprapatellar effusion. 2. Right knee arthroplasty changes without acute fracture identified. Exposure: One or more of the following in the visualized dose reduction techniques were utilized for this examination: 1. Automated exposure control 2. Adjustment of the MA and/or KV according to patient size 3. Use of iterative of reconstructive technique Electronically signed by: Bette Dominguez MD (06/20/2020 3:18 PM) [id number]
[2020-06-20 15:46] LABS: BASO % 1 % (0-3); EOS # 0.1 x10^3/uL (0.0-0.7); EOS % 1 % (0-3); HEMATOCRIT 36.5 % (36.0-47.0); HEMOGLOBIN 11.9 g/dL (12.0-15.5); LYMPH # 1.1 x10^3/uL (1.0-4.8); LYMPH % 13 % (24-48); MEAN CORPUSCULAR HEMOGLOBIN 30 pg (25-35); MEAN CORPUSCULAR HGB CONC 33 g/dL (31-37); MEAN CORPUSCULAR VOLUME 91 fL (79-100); MONO # 0.5 x10^3/uL (0.0-1.1); MONO % 6 % (0-9); NEUT # 6.7 x10^3uL (1.8-7.7); NEUT % 80 % (31-73); PLATELET COUNT 287 x10^3/uL (140-400); WHITE BLOOD COUNT 8.4 x10^3/uL (4.0-11.0)
[2020-06-20 15:56] LABS: ALBUMIN 3.1 g/dL (3.4-5.0); CALCIUM 8.7 mg/dL (8.5-10.1); CREATININE 0.8 mg/dL (0.6-1.0); GFR 68.8; TOTAL PROTEIN 6.2 g/dL (6.4-8.2)
[2020-06-20] MEDS ORDERED: METO50TA29 PO (16:00)
[2020-06-20] MEDS ORDERED: METO100T5 PO (16:00)
[2020-06-20] MEDS ORDERED: diphenhydrAMINE HCL 25 MG CAPSULE PO PRN (18:15)
[2020-06-20 20:25] VITALS: BP 120/77
[2020-06-20] MEDS: APIXABAN 5 MG TABLET. PO SCH (20:39)
[2020-06-20] MEDS: NON FORMULARY ITEM (Fluticasone/Umeclidin/Vilanter (Trelegy Ellipta 100-62.5-25) 1 EACH) IH SCH (20:40)
[2020-06-20] MEDS ORDERED: ATORVASTATIN CALCIUM 10 MG TABLET. PO SCH (21:00)
[2020-06-20] MEDS ORDERED: MONTELUKAST 10 MG TABLET. PO SCH (21:00)
[2020-06-20] MEDS ORDERED: METOPROLOL SUCC 24HR ER 50 MG TAB.ER.24H. PO SCH ×2 (21:00)
[2020-06-20] MEDS ORDERED: BISACODYL TAB 5 MG TABLET.DR. PO SCH (21:00)
[2020-06-21] VITALS: BP 124/79
[2020-06-21 06:13] VITALS: BP 127/78
[2020-06-21] MEDS ORDERED: LEVOTHYROXINE 125 MCG TABLET PO SCH (07:30)
[2020-06-21] MEDS ORDERED: PANTOPRAZOLE 40 MG TABLET. PO SCH (07:30)
[2020-06-21 07:56] VITALS: BP 131/81
[2020-06-21] MEDS: APIXABAN 5 MG TABLET. PO SCH (08:24)
[2020-06-21] MEDS: NON FORMULARY ITEM (Fluticasone/Umeclidin/Vilanter (Trelegy Ellipta 100-62.5-25) 1 EACH) IH SCH (08:27)
[2020-06-21] MEDS ORDERED: ASCORBIC ACID 500 MG TABLET PO SCH (09:00)
[2020-06-21] MEDS ORDERED: SPIRONOLACTONE 25 MG TABLET PO SCH (09:00)
[2020-06-21] MEDS ORDERED: POTASSIUM CHLORIDE 20 MEQ TABLET.ER. PO SCH (09:00)
[2020-06-21] MEDS ORDERED: MULTIVITAMIN with MINERAL TABLET. PO SCH (09:00)
[2020-06-21] MEDS ORDERED: ASPIRIN ENTERIC COATED 81 MG TABLET.DR. PO SCH (09:00)
[2020-06-21] MEDS ORDERED: METOPROLOL SUCC 24HR ER 50 MG TAB.ER.24H. PO SCH (09:00)
[2020-06-21] MEDS ORDERED: LACTOBACILLUS RHAMNOSUS GG 1 CAPSULE. PO SCH (09:00)
[2020-06-21] MEDS ORDERED: CEFT1FRO2 IV (09:15)
[2020-06-21 11:00] VITALS: BP 141/84
--- NOTE | 2020-06-21 11:50 | DISCH ---
HOME HEALTH DISCHARGE/MEDS DISCHARGE INFORMATION: Discharge Date: Jun 21, 2020 Final Diagnosis: right knee cellulitis Condition on Discharge: Stable CODE STATUS: Code Status: Full HOME HEALTH: Face to Face: I certify this patient is under my care and that I, or a nurse practitioner or physician's magistrate assistant working with me, had a face to face encounter that meets the physician face to face encounter requirements with this patient on [Date]. Medical Condition(s): Falls, Other (cellulitis) Nursing Home For: Admin/Educate Injections, Assess Cardiopulm Status, Assess & Educate Safety, Assess/Skilled Observatio, IV Infusion Therapy, Medication Management POST DISCHARGE ORDERS: Activity Instructions for Disc: Activity as tolerated Weight Bearing Status after Di: No restrictions DIET AFTER DISCHARGE: Regular CERTIFICATION STATEMENT: Certification Statement: Based on the above finding, I certify that this patient is confined to the home and needs intermittent [facility] care, physical therapy and/or speech therapy, or continues to need occupational therapy.~ This patient is under my care, and I have initiated the establishment of the plan of care.~ This patient will be followed by myself or a community physician who will periodically review the plan of care. DISCHARGE MEDICATIONS: Home Meds Active Scripts Ceftriaxone Na/Dextrose,Iso (CEFTRIAXONE 1 GM PIGGYBACK) 1 Gm/50 Ml Froz.piggy, 1 GM IV DAILY for cellullitis of right knee , #7 EACH Prov:JONNY WELCH MD 06/21/20 Reported Medications Metoprolol Succinate (METOPROLOL SUCCINATE ( XL )) 50 Mg Tab.er.24h, 1 TAB PO HS for ., #30 TAB 5 Refills 06/20/20 Metoprolol Succinate (TOPROL XL) 100 Mg Tab.er.24h, 1 TAB PO DAILY for . for 30 Days, #30 TAB 0 Refills 06/20/20 Zolpidem Tartrate (ZOLPIDEM TARTRATE) 5 Mg Tablet, 1 TAB PO PRN QHS for . 06/20/20 Fluticasone/Umeclidin/Vilanter (Trelegy Ellipta 100-62.5-25) 1 Each Blst.w.dev, 1 EACH IH BID for . 06/20/20 Spironolactone (SPIRONOLACTONE) 25 Mg Tablet, 1 TAB PO DAILY for ., #90 TAB 1 Refill 06/20/20 Montelukast Sodium (MONTELUKAST SODIUM TABLET ) 10 Mg Tablet, 10 MG PO HS for FOR ASTHMA, TAB 0 Refills 06/20/20 Levothyroxine Sodium (LEVOTHYROXINE SODIUM) 125 Mcg Tablet, 1 TAB PO DAILY for HYPOTHY, #30 TAB 5 Refills 06/20/20 Diltiazem Hcl (DILTIAZEM 24HR CD) 120 Mg Cap.er.24h, 120 MG PO BID for Heart rate, CAP.SR 11/12/19 Aspirin (ASPIRIN EC) 81 Mg Tablet.dr, 81 MG PO DAILY for prophylaxis, TAB 11/11/19 Esomeprazole Magnesium (NEXIUM CAPSULE) 40 Mg Capsule.dr, 40 MG PO DAILYAC for Dyspepsia, #30 CAP 0 Refills 11/11/19 Apixaban (ELIQUIS) 5 Mg Tablet, 5 MG PO BID for anticoagulation, TAB 11/11/19 Atorvastatin Calcium (ATORVASTATIN CALCIUM) 10 Mg Tablet, 10 MG PO QHS for FOR CHOLESTEROL, #30 TAB 0 Refills 11/11/19 Nitroglycerin (NITROSTAT) 0.4 Mg Tab.subl, 0.4 MG SL PRN Q5MIN PRN for CHEST PAIN 01/18/17 Multivitamin (MULTI-DAY VITAMINS) 1 Each Tablet, 1 TAB PO DAILY, TAB supplement need a dose today 07/26/15 Ascorbic Acid (VITAMIN C) 500 Mg Capsule.er, 500 MG PO DAILY supplement need a dose today 07/26/15 Bisacodyl (DULCOLAX) 5 Mg Tablet.dr, 10 MG PO QHS for CONSTIPATION, TAB 0 Refills for constipation need a dose tonight 07/26/15 Potassium Chloride (KLOR-CON M20) 20 Meq Tab.er.prt, 20 MEQ PO DAILY supplement need a dose today 07/26/15 Discontinued Reported Medications Albuterol Sulfate (ALBUTEROL SULFATE CONC NEB SOLN) 2.5 Mg/0.5 Ml Vial.neb, 2.5 MG NEB BID for FOR ASTHMA, EACH 0 Refills 11/11/19 Cholecalciferol (Vitamin D3) (VITAMIN D-3) 2,000 Unit Tablet, 1000 UNIT PO DAILY for supplemt, TAB 11/11/19 Calcium Carbonate (CALCIUM) 500 Mg Tab.chew, 500 MG PO BIDWMEALS for supplement, TAB.CHEW 11/11/19 Lactobacillus Acidophilus (Probiotic Acidophilus) 1.5 Mg Capsule, 1.5 MG PO QHS 01/18/17 Levothyroxine Sodium (SYNTHROID) 125 Mcg Tablet, 1.5 TAB PO DAILYAC for THYROID SUPPLEMENT, TAB 0 Refills for low thyroid had a dose this morning 07/26/15 JONNY WELCH MD Jun 21, 2020 11:50
[2020-06-21] MEDS ORDERED: VANCOMYCIN 1.25 GM in IV NORMAL SALINE 250ML 250 ML IV SCH (16:00)
== END 2020-06-21 15:39 | disposition home health service (06) | DRG 603 ==
LOC: 1 SOUTH 11:47
PROVIDERS: ADMIT Family Medicine; ATTEND Family Medicine
DX: L03.115 Cellulitis of right lower limb (principal); Z79.899 Other long term (current) drug therapy; Z88.8 Allergy status to other drugs, medicaments and biological substances; Z91.040 Latex allergy status; Z85.3 Personal history of malignant neoplasm of breast; G20 Parkinson's disease; I49.8 Other specified cardiac arrhythmias; Z95.0 Presence of cardiac pacemaker; I11.0 Hypertensive heart disease with heart failure; I50.9 Heart failure, unspecified; F41.8 Other specified anxiety disorders; E66.9 Obesity, unspecified; Z68.31 Body mass index [BMI] 31.0-31.9, adult; K21.9 Gastro-esophageal reflux disease without esophagitis; I25.10 Atherosclerotic heart disease of native coronary artery without angina pectoris; I49.9 Cardiac arrhythmia, unspecified; Z90.710 Acquired absence of both cervix and uterus; Z96.653 Presence of artificial knee joint, bilateral; Z90.89 Acquired absence of other organs; L02.415 Cutaneous abscess of right lower limb
CPT/HCPCS: 36415; 73700; 80053; 85025; J0696; J3370; J7040; Q0163

== ENCOUNTER → 2020-12-27 | Outpatient (CLI) | payer MEDICARE, OTHER ==
[2020-07-10 14:20] VITALS: BP 136/83
[~2020-12-27] MED LIST changes: +CEFT1FRO2 IV; +FLUT1BLS3 IH; +LEVO125T5 PO; +METO50TA29 PO; +MONT10TA80 PO; +ZOLP5TAB5 PO
--- NOTE | 2020-12-27 17:15 | RAD ---
EXAM: Abdomen sonogram. HISTORY: Right upper quadrant pain. TECHNIQUE: Sonographic imaging of the abdomen was performed. COMPARISON: 01/26/2017. FINDINGS: The exam is limited due to patient body habitus. The liver is normal in size. No focal hepa tic lesion is seen. There is cholelithiasis. No gallbladder wall thickening or pericholecystic fluid is seen. The kidneys are normal in size. There are small simple appearing renal cysts. There is no hy dronephrosis. The spleen is normal in size. The pancreas is unremarkable. The aorta and vena cava are partially obscured due to bowel gas. IMPRESSION: 1. Cholelithiasis. There is no evidence of cholecystitis. 2. Small simple appearing renal cysts. Follow-up is not routinely recommended for simple cysts. Electronically signed by: Ramona Camara MD (12/27/2020 5:13 PM) [id number]
== END ==
LOC: US 09:42
PROVIDERS: ATTEND Internal Medicine Gastroenterology
DX: K80.20 Calculus of gallbladder without cholecystitis without obstruction (principal); N28.1 Cyst of kidney, acquired
CPT/HCPCS: 76700

== ENCOUNTER → 2021-03-26 | Outpatient (CLI) | payer MEDICARE, OTHER ==
[2020-07-10 14:20] VITALS: BP 136/83
[~2021-03-26] MED LIST changes: -CYAN50008 PO; +CYAN50009 PO
[2021-03-26 15:35] LABS: CALCIUM 8.9 mg/dL (8.5-10.1); CREATININE 0.7 mg/dL (0.6-1.0); GFR 80.1; POTASSIUM 3.8 mmol/L (3.5-5.1)
[2021-03-26 15:41] LABS: ALBUMIN 3.3 g/dL (3.4-5.0); TOTAL BILIRUBIN 0.6 mg/dL (0.2-1.0); TOTAL PROTEIN 6.5 g/dL (6.4-8.2)
== END ==
LOC: LAB 14:55
PROVIDERS: ATTEND Family Medicine
DX: Z01.818 Encounter for other preprocedural examination (principal)
CPT/HCPCS: 36415; 80053

== ENCOUNTER → 2021-05-26 | Outpatient (CLI) | payer MEDICARE, OTHER ==
[2020-07-10 14:20] VITALS: BP 136/83
[~2021-05-26] MED LIST changes: -LACT1CAP29 PO; +LACT1CAP37 PO
--- NOTE | 2021-05-26 13:26 | RAD ---
CT HEAD INDICATION: Headaches COMPARISON: 06/01/2011 Exposure: One or more of the following individualized dose reduction techniques were utilized for thi s examination: 1. Automated exposure control 2. Adjustment of the mA and/or kV according to patient size 3. Use of iterative reconstruction technique TECHNIQUE: 5 mm contiguous axial images were obtained from the skull base to the vertex in both bone and soft tissue algorithm. FINDINGS: No abnormal attenuation within the brain parenchyma. No evidence of acute intracranial hemorrhage. No extra-axial fluid collections. No mass effect or midline shift. Ventricular size is appropriate. Basal cisterns are patent. No fractures identified.Lim-white differentiation is preserved.Globes and orbits are within normal l imits. Paranasal sinuses and mastoid air cells are clear. IMPRESSION: No acute intracranial findings. Electronically signed by: Hossein Thompson MD (05/26/2021 1:23 PM) [id number]
[2021-05-26 13:45] LABS: BASO # 0.1 x10^3/uL (0.0-0.2); BASO % 1 % (0-3); EOS # 0.1 x10^3/uL (0.0-0.7); EOS % 1 % (0-3); HEMATOCRIT 41.9 % (36.0-47.0); HEMOGLOBIN 13.6 g/dL (12.0-15.5); LYMPH # 1.9 x10^3/uL (1.0-4.8); LYMPH % 21 % (24-48); MEAN CORPUSCULAR HEMOGLOBIN 30 pg (25-35); MEAN CORPUSCULAR HGB CONC 33 g/dL (31-37); MEAN CORPUSCULAR VOLUME 93 fL (79-100); MONO # 0.6 x10^3/uL (0.0-1.1); MONO % 6 % (0-9); NEUT # 6.6 x10^3uL (1.8-7.7); NEUT % 71 % (31-73); PLATELET COUNT 252 x10^3/uL (140-400); RED BLOOD COUNT 4.52 x10^6/uL (3.50-5.40); RED CELL DISTRIBUTION WIDTH 14.4 % (11.5-14.5); WHITE BLOOD COUNT 9.3 x10^3/uL (4.0-11.0)
[2021-05-26 13:55] LABS: ALBUMIN 3.3 g/dL (3.4-5.0); ALBUMIN/GLOBULIN RATIO 1.1 (1.0-1.7); CALCIUM 8.8 mg/dL (8.5-10.1); CREATININE 0.6 mg/dL (0.6-1.0); GFR 95.7; TOTAL BILIRUBIN 0.7 mg/dL (0.2-1.0); TOTAL PROTEIN 6.4 g/dL (6.4-8.2)
--- NOTE | 2021-05-26 17:27 | RAD ---
Chest, PA and Lateral: Technique: PA and lateral views of the chest were obtained. History: Shortness of breath. Comparison: 11/12/2019. Findings: Low lung volumes accentuates heart size and pulmonary vascularity.. There are patchy airspace opacit ies identified in the bilateral lungs likely atelectasis or infiltrates.. Left-sided cardiac pacer is identified. Moderate degenerative change is identified in the thoracic spine. Impression: Patchy bilateral lung airspace opacities likely atelectasis or infiltrates. Follow-up to resolution. Electronically signed by: Hossein Thompson MD (05/26/2021 5:24 PM) [id number]
[2021-05-27 19:10] LABS: FREE T4 1.25 ng/dL (0.76-1.46); THYROID STIM HORMONE (TSH) 15.615 uIU/mL (0.358-3.740)
== END ==
LOC: CT 13:00
PROVIDERS: ATTEND Family Medicine
DX: R51.9 Headache, unspecified (principal); M47.814 Spondylosis without myelopathy or radiculopathy, thoracic region
CPT/HCPCS: 36415; 70450; 71046; 80053; 82553; 83880; 84439; 84443; 84484; 85025

== ENCOUNTER → 2021-07-04 | Outpatient (CLI) | payer MEDICARE, OTHER ==
[2020-07-10 14:20] VITALS: BP 136/83
--- NOTE | 2021-07-04 17:13 | RAD ---
Left Lower Extremity Venous Doppler Ultrasound History: Reason: LOWER LEFT LEG PAIN AND SWELLING / Spl. Instructions: / History: Comparison: None Procedure: Color flow, duplex, spectral analysis and 2D images are obtained with and without compress ion in the area of the common femoral vein, superficial femoral vein - femoral vein junction, main fe moral vein (superficial femoral vein) and popliteal vein. Veins of the proximal calf are also imaged. Findings: There is normal duplex flow, color flow and compressibility of all visualized vein segments. No evide nce of deep venous thrombus is present. Impression: No evidence of DVT. Electronically signed by: Willie Clark III, MD (07/04/2021 5:11 PM) [facility]
== END ==
LOC: US 16:35
PROVIDERS: ATTEND Family Medicine
DX: R22.42 Localized swelling, mass and lump, left lower limb (principal)
CPT/HCPCS: 93971

== ENCOUNTER → 2021-07-11 | Outpatient (CLI) | payer MEDICARE, OTHER ==
[2020-07-10 14:20] VITALS: BP 136/83
[~2021-07-11] MED LIST changes: +POTA-121 PO; -POTA20TA4 PO
--- NOTE | 2021-07-11 11:05 | RAD ---
Examination: CT left lower extremity HISTORY: History of left lower extremity pain, swelling COMPARISON: None available Technique: Axial CT images of the left lower leg without contrast. Coronal and sagittal reformats are performed Exposure: One or more of the following individualized dose reduction techniques were utilized for thi s examination: 1. Automated exposure control 2. Adjustment of the mA and/or kV according to patient size 3. Use of iterative reconstruction technique FINDINGS: The alignment of the tibia and fibula grossly appears unremarkable. Total knee arthroplasty changes. Small knee joint effusion.The tibia and fibula grossly appears unremarkable. There is mild fat strand ing identified in the soft tissue in the lateral posterior aspect of the lower leg likely edema or ce llulitis. A 7 mm hypodensity identified in the medial dome of the talus could be a small osteochondra l defect or subchondral cyst. IMPRESSION: 1. Mild fat stranding in the soft tissue in the lateral posterior aspect of the lower leg likely clarita a or cellulitis. 2. . A 7 mm hypodensity identified in the medial dome of the talus could be a small osteochondral def ect or subchondral cyst. Electronically signed by: Hossein Thompson MD (07/11/2021 11:03 AM) [id number]
== END ==
LOC: CT 10:27
PROVIDERS: ATTEND Family Medicine
DX: M25.462 Effusion, left knee (principal); Z96.652 Presence of left artificial knee joint
CPT/HCPCS: 73700